=== PATIENT | female | born 1935 | race Caucasian/White ===

== ENCOUNTER → 2016-03-23 | Outpatient (CLI) | payer MEDICARE, BC ==
[~2016-03-23] MED LIST: ASPIRIN 32325 MG/TAB PO; CELEBREX200 MG PO; CHONDROITIN SU400 MG PO; GLUCOSAMINE500 MG PO; LEVOTHROID0.1 MG PO; RITE AID CALCI600 MG PO; VITAMIN D1000 IU PO
== END ==
LOC: LAB 13:15
DX: I48.2 Chronic atrial fibrillation (principal); E03.4 Atrophy of thyroid (acquired)

== ENCOUNTER 2016-07-07 10:11 | Emergency (ER) | payer MEDICARE, BC ==
[~2016-07-07] VITALS: Ht 162.6 cm; Wt 76.8 kg
[2016-07-07 12:48] VITALS: BP 156/62
== END 2016-07-07 12:48 | disposition short-term general hospital (02) ==
LOC: ED 10:11
DX: R07.89 Other chest pain (principal); I48.91 Unspecified atrial fibrillation; R00.1 Bradycardia, unspecified
CPT/HCPCS: J0461; J1160; J7030

== ENCOUNTER 2017-04-08 10:29 | Emergency (ER) | payer MEDICARE, BC ==
[~2017-04-08] VITALS: Ht 162.6 cm; Wt 75.0 kg
[2017-04-08] MEDS ORDERED: ASPIR LOW81 MG PO (11:42)
[2017-04-08] MEDS ORDERED: ACIDOPHILUS1 EAC2 PO (11:43)
[2017-04-08] MEDS ORDERED: FLECAINIDE ACE100 MG PO (11:43)
[2017-04-08] MEDS ORDERED: MAGNESIUM OXID200 MG PO (11:44)
[2017-04-08] MEDS ORDERED: TOPROL XL 25MG25 MG PO (11:45)
[2017-04-08] MEDS ORDERED: CALCIUM CARBONA1 T10 PO (11:48)
[2017-04-08] MEDS ORDERED: VITAMIN B-12250 MCG PO (11:50)
[2017-04-08 12:11] LABS: HEMATOCRIT 42.3 % (37.0-47.0); HEMOGLOBIN 13.3 g/dL (12.5-16.0); MEAN CELL VOLUME 98 fl (78-100); MEAN CORPUSCULAR HEMOGLOBIN 31 pg (27-31); MEAN CORPUSCULAR HGB CONC 31 g/dL (33-37); MEAN PLATELET VOLUME 10.2 fl (7.4-10.4); PLATELET COUNT 261 K/mm3 (130-400); RED BLOOD COUNT 4.34 M/mm3 (4.10-5.30); RED CELL DISTRIBUTION WIDTH 12.8 % (11.5-14.5); WHITE BLOOD COUNT 4.8 K/mm3 (4.8-10.8)
[2017-04-08 12:24] LABS: ALBUMIN 4.3 g/dL (3.5-5.0); BUN/CREATININE RATIO 17.8 (6.0-26.0); CALCIUM 9.5 mg/dL (8.4-10.2); POTASSIUM 4.1 mmol/L (3.6-5.0); TOTAL BILIRUBIN 0.4 mg/dL (0.2-1.3)
[2017-04-08 12:33] LABS: BAND 3 % (0-10); LYMPHOCYTE 15 % (20-51); MONOCYTE 7 % (3-10); NEUTROPHILS 74 % (42-75)
[2017-04-08 12:57] VITALS: BP 122/70
== END 2017-04-08 13:13 | disposition home or self-care (01) ==
LOC: ED 10:29
PROVIDERS: Physician Assistant
DX: J98.9 Respiratory disorder, unspecified (principal); B34.9 Viral infection, unspecified; I48.91 Unspecified atrial fibrillation; Z95.0 Presence of cardiac pacemaker; E03.9 Hypothyroidism, unspecified; F41.9 Anxiety disorder, unspecified; Z88.5 Allergy status to narcotic agent; Z79.82 Long term (current) use of aspirin

== ENCOUNTER → 2017-05-28 | Outpatient (CLI) | payer MEDICARE, BC ==
[~2017-05-28] MED LIST changes: +ACIDOPHILUS1 EAC2 PO; +ASPIR LOW81 MG PO; +CALCIUM CARBONA1 T10 PO; +FLECAINIDE ACE100 MG PO; +MAGNESIUM OXID200 MG PO; +TOPROL XL 25MG25 MG PO; +VITAMIN B-12250 MCG PO
== END ==
LOC: LAB 13:38
DX: Z01.818 Encounter for other preprocedural examination (principal); E03.9 Hypothyroidism, unspecified; I48.0 Paroxysmal atrial fibrillation; M19.90 Unspecified osteoarthritis, unspecified site; F41.9 Anxiety disorder, unspecified

== ENCOUNTER → 2018-02-11 | Outpatient (CLI) | payer MEDICARE, BC | LOC: LAB 13:41 | DX: E03.9 Hypothyroidism, unspecified (principal) ==

== ENCOUNTER → 2019-04-03 | Outpatient (CLI) | payer MEDICARE, BC ==
[2019-04-03 12:09] LABS: BASO # 0.1 (0.02-0.10); EOS # 0.2 (0.04-0.40); EOS % 3.5 % (1.0-5.0); HEMATOCRIT 43.7 % (37.0-47.0); HEMOGLOBIN 13.9 g/dL (12.5-16.0); LYMPH# 1.6 (1.50-4.00); MEAN CELL VOLUME 98 fl (78-100); MEAN CORPUSCULAR HEMOGLOBIN 31 pg (27-31); MEAN CORPUSCULAR HGB CONC 32 g/dL (33-37); MEAN PLATELET VOLUME 10.6 fl (7.4-10.4); MONO # 0.5 (0.20-0.80); NEU # 4.5 (1.40-6.50); PLATELET COUNT 251 K/mm3 (130-400); RED BLOOD COUNT 4.48 M/mm3 (4.10-5.30); RED CELL DISTRIBUTION WIDTH 12.7 % (11.5-14.5); WHITE BLOOD COUNT 6.9 K/mm3 (4.8-10.8)
[2019-04-03 12:18] LABS: ALBUMIN 4.1 g/dL (3.4-4.8); POTASSIUM 4.2 mmol/L (3.5-5.1)
[2019-04-03 12:19] LABS: CALCIUM 9.2 mg/dL (8.3-10.5)
[2019-04-03 12:21] LABS: TOTAL PROTEIN 7.5 g/dL (6.2-8.1)
[2019-04-03 12:22] LABS: TOTAL BILIRUBIN 0.5 mg/dL (0.2-1.2)
== END ==
LOC: LAB 11:51
PROVIDERS: Physician Assistant
DX: Z01.818 Encounter for other preprocedural examination (principal); Z13.220 Encounter for screening for lipoid disorders; I10 Essential (primary) hypertension; I48.0 Paroxysmal atrial fibrillation; E03.9 Hypothyroidism, unspecified; F41.9 Anxiety disorder, unspecified; M19.90 Unspecified osteoarthritis, unspecified site; Z95.810 Presence of automatic (implantable) cardiac defibrillator

== ENCOUNTER → 2020-05-03 | Outpatient (CLI) | payer MEDICARE, BC ==
[~2020-05-03] MED LIST changes: +ASPIRIN 81M81 MG/TA2 PO; +BETAPACE AF120 M1 PO; +DULCOLAX PO; +ELIQUIS5 MG PO; +MACROBID 100 M100 MG PO
[2020-05-03 12:25] LABS: EOS # 0.1 (0.04-0.40); EOS % 1.3 % (1.0-5.0); HEMATOCRIT 43.9 % (37.0-47.0); HEMOGLOBIN 13.8 g/dL (12.5-16.0); LYMPH# 1.7 (1.50-4.00); MEAN CELL VOLUME 97 fl (78-100); MEAN CORPUSCULAR HEMOGLOBIN 31 pg (27-31); MEAN CORPUSCULAR HGB CONC 31 g/dL (33-37); MEAN PLATELET VOLUME 10.5 fl (7.4-10.4); MONO # 0.7 (0.20-0.80); NEU # 4.9 (1.40-6.50); PLATELET COUNT 278 K/mm3 (130-400); RED BLOOD COUNT 4.53 M/mm3 (4.10-5.30); RED CELL DISTRIBUTION WIDTH 12.6 % (11.5-14.5); WHITE BLOOD COUNT 7.4 K/mm3 (4.8-10.8)
[2020-05-03 12:35] LABS: POTASSIUM 4.3 mmol/L (3.5-5.1)
[2020-05-03 12:36] LABS: CALCIUM 9.1 mg/dL (8.3-10.5)
[2020-05-03 12:37] LABS: TOTAL PROTEIN 7.2 g/dL (6.2-8.1)
[2020-05-03 12:39] LABS: TOTAL BILIRUBIN 0.5 mg/dL (0.2-1.2)
== END ==
LOC: LAB 12:14
PROVIDERS: Family Medicine
DX: I10 Essential (primary) hypertension (principal); E03.9 Hypothyroidism, unspecified

== ENCOUNTER 2020-07-10 09:22 | Emergency (ER) | payer MEDICARE, BC ==
[~2020-07-10 09:22] MED LIST changes: -ASPIRIN 81M81 MG/TA2 PO; -BETAPACE AF120 M1 PO; -DULCOLAX PO; -ELIQUIS5 MG PO; -MACROBID 100 M100 MG PO
[2020-07-10] MEDS ORDERED: ASPIRIN 81M81 MG/TA2 PO (09:37)
[2020-07-10] MEDS ORDERED: ELIQUIS5 MG PO (09:37)
[2020-07-10] MEDS ORDERED: BETAPACE AF120 M1 PO (09:38)
[2020-07-10 09:48] LABS: BASO # 0.06 (0.02-0.10); EOS # 0.06 (0.04-0.40); EOS % 0.8 % (1.0-5.0); HEMATOCRIT 41.2 % (37.0-47.0); HEMOGLOBIN 13.2 g/dL (12.5-16.0); LYMPH# 1.21 (1.50-4.00); MEAN CELL VOLUME 97 fl (78-100); MEAN CORPUSCULAR HEMOGLOBIN 31 pg (27-31); MEAN CORPUSCULAR HGB CONC 32 g/dL (33-37); MEAN PLATELET VOLUME 10.7 fl (7.4-10.4); NEU # 5.25 (1.40-6.50); PLATELET COUNT 275 K/mm3 (130-400); RED BLOOD COUNT 4.23 M/mm3 (4.10-5.30); WHITE BLOOD COUNT 7.2 K/mm3 (4.8-10.8)
[2020-07-10] MEDS ORDERED: DULCOLAX PO (09:52)
[2020-07-10 10:01] LABS: PROTHROMBIN TIME 11.3 SECONDS (9.0-12.0)
[2020-07-10 10:02] LABS: ALBUMIN 3.9 g/dL (3.4-4.8)
[2020-07-10 10:03] LABS: POTASSIUM 3.8 mmol/L (3.5-5.1)
[2020-07-10 10:04] LABS: CALCIUM 9.3 mg/dL (8.3-10.5)
[2020-07-10 10:05] LABS: TOTAL PROTEIN 7.3 g/dL (6.2-8.1)
[2020-07-10 10:07] LABS: TOTAL BILIRUBIN 0.6 mg/dL (0.2-1.2)
[2020-07-10 10:17] LABS: TROPONIN-I 0.15 ng/mL (<0.030)
[2020-07-10 10:56] LABS: URINE APPEARANCE CLEAR; URINE BILIRUBIN NEGATIVE (NEGATIVE); URINE BLOOD TRACE (NEGATIVE); URINE COLOR YELLOW; URINE GLUCOSE NEGATIVE (NEGATIVE); URINE KETONE NEGATIVE (NEGATIVE); URINE LEUKOCYTE ESTERASE 2+ (NEGATIVE); URINE NITRATE NEGATIVE (NEGATIVE); URINE PROTEIN(semi-quant) TRACE mg/dL (NEGATIVE); URINE UROBILINOGEN NORMAL (NORMAL)
[2020-07-10 10:57] LABS: URINE MUCUS PRESENT (NOT PRESENT)
[2020-07-10 11:20] VITALS: BP 101/63
[2020-07-11] MEDS ORDERED: MACROBID 100 M100 MG PO (09:05)
== END 2020-07-10 11:20 | disposition other institution (70) ==
LOC: ED 09:22
PROVIDERS: Physician Assistant
DX: N39.0 Urinary tract infection, site not specified (principal); I48.20 Chronic atrial fibrillation, unspecified; R74.8 Abnormal levels of other serum enzymes; Z79.01 Long term (current) use of anticoagulants; I10 Essential (primary) hypertension; E03.9 Hypothyroidism, unspecified; Z95.0 Presence of cardiac pacemaker; Z88.5 Allergy status to narcotic agent; Z79.890 Hormone replacement therapy; Z79.82 Long term (current) use of aspirin
CPT/HCPCS: J7030

== ENCOUNTER 2020-07-10 11:13 | Inpatient (IN) | payer MEDICARE, BC ==
[~2020-07-10 11:13] MED LIST changes: +ASPIRIN 81M81 MG/TA2 PO; +BETAPACE AF120 M1 PO; +DULCOLAX PO; +ELIQUIS5 MG PO
[2020-07-10 12:00] VITALS: BP 101/63
[2020-07-10 13:52] VITALS: BP 112/68
[2020-07-10 13:53] VITALS: BP 107/72
[2020-07-10 18:29] VITALS: BP 108/69
[2020-07-10 22:18] VITALS: BP 98/65
[2020-07-11 02:53] VITALS: BP 118/72
[2020-07-11 06:04] VITALS: BP 117/69
[2020-07-11 06:08] LABS: POTASSIUM 3.9 mmol/L (3.5-5.1)
[2020-07-11 06:09] LABS: CALCIUM 8.7 mg/dL (8.3-10.5)
[2020-07-11] MEDS ORDERED: MACROBID 100 M100 MG PO (09:05)
[2020-07-11 10:11] VITALS: BP 148/83
== END 2020-07-11 12:15 | disposition home or self-care (01) | DRG 309 ==
LOC: MED/SURG 11:13
PROVIDERS: ADMIT Physician Assistant
DX: I48.91 Unspecified atrial fibrillation (principal); N39.0 Urinary tract infection, site not specified; I10 Essential (primary) hypertension; E03.9 Hypothyroidism, unspecified; F41.9 Anxiety disorder, unspecified; M19.90 Unspecified osteoarthritis, unspecified site; R79.89 Other specified abnormal findings of blood chemistry; Z79.01 Long term (current) use of anticoagulants; Z79.82 Long term (current) use of aspirin; Z95.0 Presence of cardiac pacemaker; Z90.710 Acquired absence of both cervix and uterus
CPT/HCPCS: J0696; J7030